=== PATIENT | female | born 1990 | race African-American/Black ===

== ENCOUNTER 2017-10-06 17:46 | Emergency (ER) | payer SELFPAY ==
[~2017-10-06] VITALS: Ht 167.6 cm; Wt 84.1 kg
[2017-10-06 18:15] LABS: APPEARANCE,URINE CLOUDY (CLEAR); BILIRUBIN,URINE NEGATIVE (NEGATIVE); GLUCOSE, URINE (UA) NEGATIVE (NEGATIVE); KETONES,URINE TRACE mg/dL (NEGATIVE); LEUKOCYTE ESTERASE ,URINE MODERATE (NEGATIVE); NITRATE,URINE NEGATIVE (NEGATIVE); OCCULT BLOOD,URINE SMALL (NEGATIVE); PH,URINE 5.5 (5.0-8.0); PROTEIN,URINE TRACE (NEGATIVE)
[2017-10-06 18:33] LABS: RBC,URINE 0-2 /HPF (0-2)
[2017-10-06 18:34] LABS: BACTERIA,URINE Many /HPF (None Seen)
[2017-10-06 18:35] LABS: YEAST,URINE Rare /HPF (None Seen)
[2017-10-06 18:36] LABS: SQUAMOUS EPITHELIAL CELL,UR Many /LPF (None Seen)
[2017-10-06] MEDS ORDERED: ACETAMINOPHEN 325 MG TABLET PO ONE (18:45)
[2017-10-06] MEDS ORDERED: SULFAMETHOX/TRIMETH DS 800-160 MG/TABLET PO ONE (18:45)
[2017-10-06] MEDS ORDERED: PHENAZOPYRIDINE HCL 100 MG TABLET PO ONE (18:45)
[2017-10-06 19:11] VITALS: BP 117/73
== END 2017-10-06 19:10 | disposition home or self-care (01) ==
LOC: EMS 17:47
DX: N39.0 Urinary tract infection, site not specified (principal)
CPT/HCPCS: 87086; 99284